=== PATIENT | female | born 1955 | race Caucasian/White ===

== ENCOUNTER 2019-12-27 14:06 | Emergency (ER) | payer OTHER, SELFPAY ==
[2019-12-27 14:06] VITALS: BP 176/93; PULSE 106; RESP 16; TEMP 35.5; O2SAT 95; BMI 37.5
--- NOTE | 2019-12-27 14:17 | ED.VIS.LOWEX ---
History of Present Illness Chief Complaint: Lower Extremity Injury Informant: Patient Occurred: Today Mechanism/Context: Injury Onset: Today Context: Sudden Onset Timing: Continuous Quality of Pain: Sharp, Throbbing Location: left foot Current Severity: Moderate Maximum Severity: Severe Worsened by: movement, palpation Relieved by: rest Associated Symptoms: Negative for: Parasthesia, Weakness, Loss of Funtion Narrative: 64-year-old female presents to the emergency department with a left foot injury. Patient was at home and accidentally dropped a wooden pallet on her foot. She was wearing a shoe. She is having pain swelling and bruising over her foot. She is able to ambulate but it is painful. She does have some degree of neuropathy but no worsening symptoms of this. No lacerations or abrasions. She is not on anticoagulation. Tetanus Immunization: Unknown Prior similar symptoms: No Recent Illness/Hospitalization: No Past Medical History - Allergies and Home Meds Allergies/Adverse Reactions: Allergies prednisone Adverse Reaction (Verified 12/27/19 14:06) Other Primary Care Physician: Junie Miranda DO [Primary Care Provider] - Prior records reviewed: Yes Past Medical History: - - HTN, HPL, DM2 Surgical History: no surgical history Lives: With Family Smoking Status: Never smoker Alcohol: None Drugs: None Review of Systems All systems negative except as indicated General: Denies: Chills, Fever, Sweats Eyes: Denies: Visual changes - bilaterally, Diplopia ENT: Denies: Rhinorrhea, Sore throat Cardiovascular: Denies: Chest pain, Palpitations Respiratory: Denies: Dyspnea, Cough, Dyspnea on exertion Gastrointestinal: Denies: Abdominal pain, Nausea, Vomiting, Diarrhea, Melena, Hematochezia Genitourinary: Denies: Dysuria, Hematuria, Frequency Musculoskeletal: Reports: Swelling, Extremity Pain. Denies: Back pain Skin: Denies: Rash, Abscess, Abrasions, Wounds Neurological: Denies: Headache, Weakness, Numbness Physical Exam Vital Signs/Narrative: Vital Signs Temp Pulse Resp BP Pulse Ox 12/27/19 14:06 96 F L 106 H 16 176/93 H 95 Inital Vital Signs reviewed: Yes - Extremity Exam Left Foot: - - Swelling bruising over the dorsum of the left foot mostly at the base of the first toe. The skin is intact. She has diffuse bony tenderness in this area. Cap refill sensation are both normal. Nail intact. There is no other bony tenderness of the foot or ankle. DP and PT pulses normal. No ankle tenderness. Normal active range of motion all 5 toes and she is able to actively plantarflex and dorsiflex General: Well nourished, Well developed Head: Normocephalic, Atraumatic Eyes: Perrl, EOMI ENT: No Trauma, Moist Mucous Membranes Neck: Nontender, Full ROM Cardiovascular: Regular rate, Regular rhythm, No murmurs Respiratory: No distress, CTA bilaterally, Chest nontender Abdomen: Soft, Nontender, Nondistended, Normal bowel sounds Back: Nontender Skin: Normal color, No rash Neurological: Alert, Oriented x3, Cranial nerves II-XII grossly intact, Normal Strength, Normal Sensation Psychological: Normal affect Diagnostic/Tx/Re-eval - Medical Decision Making X-ray of the foot shows no acute fractures or other acute abnormalities as independently interpreted by the emergency physician. Patient declines crutches was given an Niall wrap. Advised to rest ice elevate and use anti-inflammatories and follow-up with her doctor ED Disposition - Plan for ED Patient: Disposition: Home or Assisted Living Diagnosis: Contusion, foot Instructions: ED FOOT CONTUSION Referrals: Junie Miranda DO [Primary Care Provider] -
--- NOTE | 2019-12-27 14:27 | RAD_ITS ---
STUDY: X-RAY - LEFT FOOT CLINICAL: Female, 64 years old. Trauma, pain and swelling. TECHNIQUE: 3 view(s) of the foot. COMPARISON: None. FINDINGS: Moderate plantar spur. Prominent calcific enthesopathy at the insertion of the Achilles tendon. Normal visualized subtalar, talonavicular, calcaneocuboid, tarsal and tarsometatarsal articulations. Normal metatarsi. Normal metatarsophalangeal joint of the great toe. Normal tibial and fibular sesamoid bones. Normal interphalangeal joint of the great toe. Normal phalanges of the great toe. Normal second through fifth metatarsophalangeal joints. Normal interphalangeal joints and phalanges of the lesser toes. Mild to moderate dorsal soft tissue swelling. There is no demonstrated fracture. RAD/Foot min 3 Views IMPRESSION: No acute fracture or dislocation. Electronically Signed: Israel Frye MD at 15:00 EDT , Service support ,
--- NOTE | 2019-12-27 14:32 | ED.DCSUM_ITS ---
- ER Visit Summary Date of Service: 12/27/19 Chief Complaint: [Injury to left foot] History of Present Illness: The patient is a 64 F [presents to the emergency department after dropping a palate on her left foot. Patient was wearing shoes. Patient complains of bruising to the foot now and painful to ambulate. Patient is a diabetic.] Patient seen in conjunction with physician executive administrative assistant Ritchie Morales. Physical Examination: [HEENT-PERRLA, EOMI. Cranial nerves II through XII baldev ssly intact. TMs clear. Mucous membranes moist. No adenopathy. Cardiovascular-regular rate and rhythm without murmur or ectopy Lungs-clear to auscultation, chest wall stable without crepitus or subcu emphysema Abdomen-normoactive bowel sounds, soft, nontender, no rebound or rigidity, no peritoneal signs. Extremities-intact ?4, normal range of motion, normal pulses. Left foot-patient has ecchymosis and bruising noted over the dorsum of the first MTP joint with tenderness palpation. No obvious deformity. Neurovascular intact distally.] Test Results: [X-rays of the left foot obtained read by myself as no acute fractures. Patient has some calcific tendinitis at the insertion of the Achilles tendon and a heel spur noted.] Emergency Department Course and Treatment: [Patient will be offered an Niall wrap and crutches for comfort.] Treatment Plan: [She advised to follow-up with primary care physician in 5 to 7 days. Patient advised to ice and elevate the extremity. Patient advised to use ibuprofen or Tylenol for discomfort.] Disposition: [Discharged home in stable condition] Impression: [Contusion left foot] This note was generated with [employer] dictation software. It may contain incorrect words, spelling, and punctuation that were not noted in review of the chart prior to signing ED Disposition - Plan for ED Patient: Referrals: Junie Miranda DO [Primary Care Provider] -
[2019-12-27 14:46] VITALS: BP 133/59; PULSE 86; RESP 17; O2SAT 97
== END 2019-12-27 14:55 | disposition home or self-care (01) ==
LOC: ED 14:52
PROVIDERS: Emergency Provider Physician Assistant Medical; PCP Internal Medicine
DX: S90.32XA Contusion of left foot, initial encounter (principal); M65.272 Calcific tendinitis, left ankle and foot; W22.8XXA Striking against or struck by other objects, initial encounter; Y93.9 Activity, unspecified; Y92.9 Unspecified place or not applicable; I10 Essential (primary) hypertension; E11.9 Type 2 diabetes mellitus without complications; E78.5 Hyperlipidemia, unspecified; Z79.4 Long term (current) use of insulin; Z79.84 Long term (current) use of oral hypoglycemic drugs; Z79.899 Other long term (current) drug therapy
CPT/HCPCS: 73630; 99282

== ENCOUNTER 2020-09-04 11:57 | Emergency (ER) | payer OTHER, SELFPAY ==
[2020-09-04 11:58] VITALS: BP 135/70; PULSE 68; RESP 18; TEMP 36.2; O2SAT 96; BMI 36.1
--- NOTE | 2020-09-04 12:08 | RAD_ITS ---
STUDY: X-RAY - LEFT RADIUS AND ULNA REASON FOR EXAM: Female, 64 years old. PAIN W/ LTD ROM FROM ELBOW TO WRIST. HX FALL TECHNIQUE: 2 view(s) of the forearm. COMPARISON: None. FINDINGS: There is no demonstrated soft tissue swelling. Normal visualized radius. Normal visualized ulna. RAD/Forearm 2 Views IMPRESSION: Normal x-ray examination of the radius and ulna. Electronically Signed: Raoul Nieves MD at 12:43 EST Tel , Service support ,
--- NOTE | 2020-09-04 13:01 | ED.VISSUMM ---
- ER Visit Summary Date of Service: 09/04/20 Chief Complaint: Fall and left arm pain History of Present Illness: The patient is a [address] Nazario. She reports that yesterday she slipped on a rug in her breezeway and landed on her left elbow. She has pain to her left forearm that is 8 of 10 severity. The sharp pain is increased with movement. She denies any blow to the head or loss of consciousness. No neck, back, shoulder, or hip pain. She is right-hand dominant. Physical Examination: Vitals: Stable. Afebrile. Neck: No vertebral tenderness. Full ROM without difficulty. Cleared by NEXUS criteria. Back: No vertebral tenderness. General: A&O x 3. NAD. Cardiovascular exam: Regular rate and rhythm, no murmur, rub or gallop. Respiratory exam: Chest nontender. No crepitus. Clear to auscultation bilaterally. No wheezes or stridor. Abdominal exam: Soft, nontender, nondistended, normal bowel sounds. No pain in RUQ or LUQ specifically. No peritoneal signs. Extremity: Mild diffuse tenderness palpation over her left forearm. Moderate translocation over the radial head. She is neuro vas intact distal to this. Test Results: X-ray shows an anterior sail sign with no obvious fracture. Emergency Department Course and Treatment: Patient refused pain medications. Clinically she has a radial head fracture that is not apparent on the x-ray. She was placed in a sling. She does not want a splint. Treatment Plan: Patient be discharged instructions to follow-up with Dr. Alvarado in 1 week for another exam. Ice the area. Use Tylenol and/or ibuprofen as needed for pain. Return to the emergency department for any worsening symptoms. Disposition: To home in improved and stable condition. Impression: 1. Fall. 2. Occult radial head fracture on the left. This note was generated with [employer] dictation software. It may contain incorrect words, spelling, and punctuation that were not noted in review of the chart prior to signing ED Disposition - Plan for ED Patient: Instructions: ED Radial Head Fracture Referrals: Akshat Alvarado DO [STAFF PHYSICIAN] - 1 Week
[2020-09-04 13:11] VITALS: BP 128/62; PULSE 70; RESP 16
== END 2020-09-04 13:24 | disposition home or self-care (01) ==
LOC: ED 13:01
PROVIDERS: Emergency Provider Emergency Medicine; PCP Family Medicine
DX: S52.122A Displaced fracture of head of left radius, initial encounter for closed fracture (principal); W01.10XA Fall on same level from slipping, tripping and stumbling with subsequent striking against unspecified object, initial encounter; Y93.9 Activity, unspecified; Y92.009 Unspecified place in unspecified non-institutional (private) residence as the place of occurrence of the external cause; Y99.9 Unspecified external cause status; E11.9 Type 2 diabetes mellitus without complications; I10 Essential (primary) hypertension; J45.909 Unspecified asthma, uncomplicated; Z79.4 Long term (current) use of insulin; Z79.899 Other long term (current) drug therapy
CPT/HCPCS: 73090; 99283

== ENCOUNTER → 2020-10-24 10:01 | Outpatient (CLI) | payer OTHER, SELFPAY ==
[2020-10-24 10:41] LABS: Absolute Lymphocyte Count 2.43 X10^3/uL (0.83-4.51); Absolute Neutrophil Count 4.1 X10^3/uL (2.0-7.7); Basophil# 0.05 X10^3/uL; Basophil% 0.7 % (0-1); Eosinophils% 2.7 % (0-5); Hematocrit 39.5 % (37-47); Hemoglobin 12.9 g/dL (12.0-15.0); Lymphocyte # 2.43 X10^3/ul (4.0); Lymphocyte % 32.5 % (19-41); Mean Corp Hgb Conc 32.7 g/dL (32-36); Mean Corpuscular Hgb 28.3 pg (27.0-32.0); Mean Corpuscular Volume 86.6 fL (81-99); Mean Platelet Vol. 10.4 fl (6.2-12.0); Monocyte# 0.66 X10^3/uL; Monocyte% 8.8 % (0-10); NRBC Flagged by Analyzer 0 % (0-5); Neutrophil # 4.09 X10^3/uL (2.7-7.7); Neutrophil % 54.6 % (47-70); Platelet Count 336 K/mm3 (150-450); RBC Distribution Width CV 12.5 % (11.6-14.6); RBC Distribution Width SD 39.4 fl (35.1-43.9); Red Blood Count 4.56 M/mm3 (4.2-5.4); White Blood Count 7.5 K/mm3 (4.4-11.0)
[2020-10-24 11:16] LABS: ALB/GLOB Ratio 0.9 RATIO (0.9-2.4); AST(SGOT) 20 U/L (15-37); Alanine Aminotransfer ALT/SGPT 27 U/L (13-56); Albumin, Serum 3.6 g/dL (3.2-5.0); Alkaline Phosphatase 104 U/L (45-117); Anion Gap 9 (5-15); BUN 8 mg/dL (7-18); BUN/Creat Ratio 9.7 RATIO (10-20); Calcium,Total 9.3 mg/dL (8.5-10.1); Chloride 101 mmol/L (98-107); Cholesterol 290 mg/dL (200); Creatinine, Serum 0.82 mg/dL (0.55-1.02); EST Glomerular Filtration Rate 74 mL/min (>60); Est Glom Filt Rate - Afr Amer 90 mL/min (>60); Globulin 4.1 g/dL (2.2-4.2); Glucose 294 mg/dL (74-106); High Density Lipoprotein 41 mg/dL; Protein, Total 7.7 g/dL (6.4-8.2); Sodium Level 135 mmol/L (136-145); Triglycerides 262 mg/dL; Very Low Density Lipoprotein 52 mg/dL (5-40)
== END ==
PROVIDERS: PCP Family Medicine; Referring Provider Family Medicine; Visit Provider Family Medicine
DX: E11.65 Type 2 diabetes mellitus with hyperglycemia (principal); I10 Essential (primary) hypertension; E78.5 Hyperlipidemia, unspecified; K21.9 Gastro-esophageal reflux disease without esophagitis
CPT/HCPCS: 36415; 80053; 80061; 85025

== ENCOUNTER 2020-11-21 09:30 | Outpatient (RCR) | payer OTHER, SELFPAY ==
--- NOTE | 2020-10-19 08:13 | HP.OTEVAL ---
Patient's Visit Information VEE HUDSON is a 64 year old F, referred to Occupational Therapy by JOSE JOHNS, with a diagnosis of left radial head fx. Date of Evaluation: 10/18/20 Occupational Therapist: Syeda Khan, JOANR/Erik, CHT - Subjective This 64 year old female was seen for OT eval with dx of left radial head fx. pt states she had a fall 3 weeks prio to getting in at [facility]. Pt sates she had a fall due due to a rug that slipped under her feet. pt states her elbow gets a little achy- pt states she hasn't lifted anything. pt states sx was on 09/26/20 pt is 3 weeks 1 day s/p from left radial head arthroplasty. - Pain left elbow 4 Pain Intensity Range: 1, 6 - ROM Elbow: right 0/145 left -35/105 Forearm: right 60 left 45 Wrist: right 55/60 left 40/30 ROM Comments: pt demo with limited left elbow ROM - Strength Architectural Representative: right 50# left 7# Lateral Pinch: right 10# left 8# Tripod Pinch: right 8# left 5# - Sensation Thumb: right/left 2.83 Index: right/left 2.83 Middle: right/left 2.83 Ring: right/left 2.83 Little: right/left 2.83 Sensation Comments: pt states she feels like her LF is numb since cast was placed - Quick DASH-Disab of Arm,Shoulder& Hand Quick DASH Score: 65.0000 - Goals Goal:100% adherence to protocol: Yes Comment: radial head arthroplasty Goal:Daily scar massage when approriate: Yes Goal:ROM equal to unaffected hand: Yes Goal:Architectural Representative/Pinch strength at least 75% of unaffected hand: Yes Goal:No pain with affected hand use: Yes Goal:Full use of affected hand in daily activities including: Yes - Rehabilitation General Assessment: pt s/p 3 weeks and 1 day left radial head arthroplasty. pt limited with left elbow, forearm and wrist ROM, pain and weakness limit her with ADls and IADls. pt would benefit from skilled OT services 1-2x week for 6 weeks to return pt to PLOF. Today thearpy reviewed with pt AROM of elbow flex/ext, forearm sup/pron and wrist flex/ext. therapist instructed pt to hold her active end rage for 10 sec and work up to increase time. once pt has gained full ROM will transition pt to PRE as regina. pt demo understanding and agree to POC. Rehabilitation Potential: Good - Anticipated Interventions A/AAROM/PROM, Strengthening, Scar Care, Triggerpoint Release, Modalities, Orthoses, Joint Protection/Energy Conservation, Ergonomic Education - Visit Plan Frequency: 2x /Week Duration: 6 Weeks TEXT: Thank you for the opportunity to evaluate your patient. For Medicare and Medicare HMO plans, please review the plan of care and approve it. It will need to be FAXED BACK to us at [phone] for Medicare purposes. Please let me know if there are questions or concerns regarding this plan of care. Physician Signature: Date:
--- NOTE | 2020-11-21 10:01 | HP.OTDCSUM_ITS ---
It has been my pleasure to treat VEE HUDSON under orders from JOSE JOHNS, for the diagnosis of left radial head fx for a total of 8 visit(s). Please see the following information for a summary of their discharge status. % Improvement: 85 Objective/Function: left elbow ROM -30/ 130 (pt has been at -15 on October 31). pt made some gains with her elbow ROM but noticed with return to work a decrease in ROM- this could be as pt is only able to stretch 3-4 x a day. 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 pt reports she will cont with her HEP to cont to make gains in her ROM and strength. Patient Goals: Regain Strength, Use Hand/Wrist/Arm Normally Again, Be More Independent in ADLS Goal:100% adherence to protocol: Yes Goal:Daily scar massage when approriate: Yes Goal:ROM equal to unaffected hand: Yes Goal:Second Operator/Pinch strength at least 75% of unaffected hand: Yes Goal:No pain with affected hand use: Yes Goal:Full use of affected hand in daily activities including: Yes Plan: D/C with HEP Discharge Comments: pt was seen for 8 OT visits following radial head fx with surgical repair. pt made some gains with her ROM but continues to demo limited flex/ext- BUT this does not limit pts ind. with her ADLS and IADLs. pt is continuing with a HEP that includes end range stretching and t-band for PRE. Th eracoyst did discuss a static progressive brace but pt in not receptive and reports she would not have time to use one. pt will cont with her HEP at this time. If there are questions or concerns regarding this patient's occupational therapy, please fell free to call me at [phone]. Thank you for the referral of this patient. Sincerely, Syeda Khan, OTR/L, CHT
== END 2020-11-21 19:00 | disposition home or self-care (01) ==
LOC: OT 09:30
PROVIDERS: PCP Family Medicine
DX: S52.122D Displaced fracture of head of left radius, subsequent encounter for closed fracture with routine healing (principal)
CPT/HCPCS: 97035; 97110; 97140; 97166; 97530

== ENCOUNTER → 2022-02-05 | Outpatient (CLI) | payer MEDICARE, SELFPAY ==
[2022-02-05 10:49] LABS: Absolute Lymphocyte Count 2.31 X10^3/uL (0.83-4.51); Absolute Neutrophil Count 5.4 X10^3/uL (2.0-7.7); Basophil# 0.06 X10^3/uL; Basophil% 0.7 % (0-1); Eosinophil# 0.15 X10^3/uL; Eosinophils% 1.7 % (0-5); Hematocrit 39.9 % (37-47); Hemoglobin 12.9 g/dL (12.0-15.0); Lymphocyte # 2.31 X10^3/ul (0.83-4.51); Lymphocyte % 26.3 % (19-41); Mean Corp Hgb Conc 32.3 g/dL (32-36); Mean Corpuscular Hgb 27.3 pg (27.0-32.0); Mean Corpuscular Volume 84.4 fL (81-99); Mean Platelet Vol. 11.2 fl (6.2-12.0); Monocyte# 0.77 X10^3/uL; Monocyte% 8.8 % (0-10); NRBC Flagged by Analyzer 0 % (0-5); Neutrophil % 61.6 % (47-70); Platelet Count 304 K/mm3 (150-450); RBC Distribution Width CV 12.7 % (11.6-14.6); RBC Distribution Width SD 38.8 fl (35.1-43.9); Red Blood Count 4.73 M/mm3 (4.2-5.4); White Blood Count 8.8 K/mm3 (4.4-11.0)
[2022-02-05 11:10] LABS: ALB/GLOB Ratio 0.9 RATIO (0.9-2.4); AST(SGOT) 24 U/L (15-37); Alanine Aminotransfer ALT/SGPT 22 U/L (13-56); Albumin, Serum 3.5 g/dL (3.2-5.0); Alkaline Phosphatase 92 U/L (45-117); Anion Gap 8 (5-15); BUN 8 mg/dL (7-18); BUN/Creat Ratio 10.1 RATIO (10-20); Chloride 101 mmol/L (98-107); Cholesterol 134 mg/dL (200); Creatinine, Serum 0.79 mg/dL (0.55-1.02); EST Glomerular Filtration Rate 77 mL/min (>60); Est Glom Filt Rate - Afr Amer 94 mL/min (>60); Globulin 4.1 g/dL (2.2-4.2); Glucose 310 mg/dL (74-106); High Density Lipoprotein 36 mg/dL; Potassium 3.9 mmol/L (3.5-5.1); Protein, Total 7.6 g/dL (6.4-8.2); Sodium Level 137 mmol/L (136-145); Triglycerides 205 mg/dL; Very Low Density Lipoprotein 41 mg/dL (5-40)
[2022-02-05 11:11] LABS: Microalbumin,Random Urine 67.8 mg/L (NO RANGE EST.); Microalbumin:Creatinine Ratio 27.1 mg/g CRE (<30 mg/g CRE)
[2022-02-05 11:20] LABS: Hemoglobin A1c 12.1 % (3.8-5.6)
== END | disposition home or self-care (01) ==
LOC: LAB 09:44
PROVIDERS: PCP Family Medicine; Referring Provider Family Medicine; Visit Provider Family Medicine
DX: E11.65 Type 2 diabetes mellitus with hyperglycemia (principal); E78.5 Hyperlipidemia, unspecified; I10 Essential (primary) hypertension; K21.9 Gastro-esophageal reflux disease without esophagitis
CPT/HCPCS: 36415; 80053; 80061; 82043; 82570; 83036; 85025

== ENCOUNTER → 2022-12-21 | Outpatient (CLI) | payer MEDICARE, SELFPAY ==
[2022-12-21 15:21] LABS: Absolute Lymphocyte Count 3.01 X10^3/uL (0.83-4.51); Basophil# 0.07 X10^3/uL; Basophil% 0.7 % (0-1); Eosinophil# 0.15 X10^3/uL; Eosinophils% 1.5 % (0-5); Hematocrit 39.4 % (37-47); Hemoglobin 12.4 g/dL (12.0-15.0); Lymphocyte # 3.01 X10^3/ul (0.83-4.51); Lymphocyte % 29.7 % (19-41); Mean Corp Hgb Conc 31.5 g/dL (32-36); Mean Corpuscular Hgb 27.4 pg (27.0-32.0); Mean Platelet Vol. 11.1 fl (6.2-12.0); Monocyte# 0.86 X10^3/uL; Monocyte% 8.5 % (0-10); NRBC Flagged by Analyzer 0 % (0-5); Neutrophil # 5.99 X10^3/uL (2.7-7.7); Platelet Count 298 K/mm3 (150-450); RBC Distribution Width CV 12.9 % (11.6-14.6); RBC Distribution Width SD 40.8 fl (35.1-43.9); Red Blood Count 4.53 M/mm3 (4.2-5.4); White Blood Count 10.1 K/mm3 (4.4-11.0)
[2022-12-21 16:07] LABS: ALB/GLOB Ratio 0.8 RATIO (0.9-2.4); AST(SGOT) 46 U/L (15-37); Alanine Aminotransfer ALT/SGPT 29 U/L (13-56); Albumin, Serum 3.5 g/dL (3.2-5.0); Alkaline Phosphatase 77 U/L (45-117); Anion Gap 7 (5-15); BUN 8 mg/dL (7-18); BUN/Creat Ratio 11.1 RATIO (10-20); Chloride 105 mmol/L (98-107); Cholesterol 127 mg/dL (200); Creatinine, Serum 0.72 mg/dL (0.55-1.02); EST Glomerular Filtration Rate 86 mL/min (>60); Est Glom Filt Rate - Afr Amer 104 mL/min (>60); Globulin 4.5 g/dL (2.2-4.2); Glucose 130 mg/dL (74-106); High Density Lipoprotein 41 mg/dL; Potassium 4.3 mmol/L (3.5-5.1); Sodium Level 139 mmol/L (136-145); Triglycerides 174 mg/dL; Very Low Density Lipoprotein 35 mg/dL (5-40)
[2022-12-21 16:12] LABS: Microalbumin,Random Urine < 5.0 mg/L (NO RANGE EST.)
== END | disposition home or self-care (01) ==
LOC: BFHLAB 11:33
PROVIDERS: PCP Family Medicine; Referring Provider Family Medicine; Visit Provider Family Medicine
DX: I10 Essential (primary) hypertension (principal); E11.65 Type 2 diabetes mellitus with hyperglycemia; E78.5 Hyperlipidemia, unspecified; K21.9 Gastro-esophageal reflux disease without esophagitis
CPT/HCPCS: 36415; 80053; 80061; 82043; 82570; 85025

== ENCOUNTER → 2023-06-28 | Outpatient (CLI) | payer MEDICARE, OTHER, SELFPAY ==
--- NOTE | 2023-06-28 09:21 | RAD_ITS ---
STUDY: X-RAY - RIGHT KNEE REASON FOR EXAM: Female, 67 years old. Right lateral knee pain. TECHNIQUE: 4 view(s) of the knee. COMPARISON: None. FINDINGS: Osteopenia. Inferior patellar spur. Moderate medial compartmental arthrosis. Mild lateral compartmental arthrosis. Lateral tilt and subluxation of the patella with mild arthrosis of the lateral patellofemoral compartment. Small suprapatellar joint effusion. Normal soft tissues. RAD/Knee 4 or More Views IMPRESSION: Osteopenia with inferior patellar spur, tricompartmental arthrosis and small joint effusion. Electronically Signed: Bandar Alexander MD at 11:00 EST ,
== END | disposition home or self-care (01) ==
LOC: MTRAD 09:19
PROVIDERS: PCP Family Medicine; Referring Provider Family Medicine; Visit Provider Family Medicine
DX: M25.561 Pain in right knee (principal)
CPT/HCPCS: 73564

== ENCOUNTER 2023-07-04 09:01 | Outpatient (RCR) | payer MEDICARE, OTHER, SELFPAY ==
--- NOTE | 2023-07-04 09:47 | HP.PTEVAL ---
Patient's Visit Information Visit Information Visit Information: VEE HUDSON is a 67 year old F referred to Physical Therapy by Dr. Rizwana Nazario MD with a diagnosis of R knee pain. Date of Evaluation: 07/04/23 Physical Therapist: Erik Wing, CATHLEENT, OCS, CSCS Visit Plan Frequency: 1x/Week Duration: 4-6 Weeks Plan: Monitor meloxicam weeans effect on pain and function weekly x 3-4:next session NWB strength then WB strength if pain stays good patient did not wish more frequent visits and full gym program Subjective Subjective: R knee had been hurting for 6-8 weeks insidiously. took ibuprofen but still became hard to walk and was limping. At doctor's appointment mentioned to doctor and had x rays. Then PT. Pain is posteriorly described as tightness and sometimes anteriorly. Intermittent, comfortable at rest. Worse with walking further. On meds for this antiinflammtory which has helped. It helped 95%. sleep is not a problem but was prior to meds. Retired. Spends day cleaning house and straightening up, reads, plays puzzles. No regular exercises. Pain R knee: Pain Intensity (Out of 10): 0 Pain Intensity Range: 0 and 2 Objective Objective: Walks without antalgia i today, steps reciprocally with one rail, bed and chair transfers I without pain, meloxicam has really helped and she wonders why she is here. AROM R knee 0 with pain to 122 limited by pain, L knee 0-130 hip and ankle AROM WFL, tightness evident in HS at -30 90/90 test adn quad B. strength is 3+ R knee ext adn flexion with pain, L is 4/5, hips are 3+ abd and rotations and ext B and 4- flexion. ankles 4+/5 + bounce home, - ant drawer, - knee scour, - post sag, - pivot shift. Balance/Special Test Scores Lower Extremity Functional Score: 52 Goals Goal 1:: Full aROM R knee without pain Goal Time Frame: 4-6 Weeks Goal 2:: Pt feel 100% better Goal Time Frame: 4-6 Weeks Goal 3:: I approp HEp to minimize chance of returning. Goal Time Frame: 4-6 Weeks Rehabilitation Potential Physical Therapy Diagnosis: R knee pain limiting function until meds, meniscal vs OA Rehabilitation Potential: Good Anticipated Interventions Patient/Client Instruction: Educate patient on: Condition For the Purpose of:: To decrease pain, To increase ROM, To improve nutrient delivery to tissue, To improve muscle performance and motor function and To increase tolerance to activity/condition/position Therapeutic Exercise to Include: Strength training, Flexibilty training, Passive ROM and Active ROM For the Purpose of:: To decrease pain, To decrease swelling/inflammation, To increase ROM, To improve nutrient delivery to tissue, To increase tolerance to activity/condition/position and To improve ability of physical actions for home/community/work/leisure Text: Thank you for the opportunity to evaluate your patient. For Medicare and Medicare HMO plans, please review the plan of care and approve it. It will need to be FAXED BACK to us at [phone] for Medicare purposes. For Medicare only, by signing this I certify the plan of care. Please let me know if there are questions or concerns regarding this plan of care. Physician Signature: Date:
--- NOTE | 2023-08-30 14:28 | HP.PT.NRP ---
Patient Information Patient Information: VEE HUDSON was seen in my office for initial evaluation on 07/04/23. The following Plan of Care was established for this patient: POC Established Initial Frequency: 1x/Week Initial Duration: 4-6 Weeks Anticipated Interventions Patient/Client Instruction: Educate patient on: Condition For the Purpose of:: To decrease pain, To increase ROM, To improve nutrient delivery to tissue, To improve muscle performance and motor function and To increase tolerance to activity/condition/position Therapeutic Exercise to Include: Strength training, Flexibilty training, Passive ROM and Active ROM For the Purpose of:: To decrease pain, To decrease swelling/inflammation, To increase ROM, To improve nutrient delivery to tissue, To increase tolerance to activity/condition/position and To improve ability of physical actions for home/community/work/leisure Last Seen Last Seen: This patient was last seen in our office 07/04/23. Pertinent comments regarding their Physical therapy will appear below: Pt seen for initial evaluation and POC established. PT did not return for any further visits. At this point, it has been over 6 weeks and i will discontinue due to nonattendance. At this point I will be discontinuing this patient from physical therapy. I would be happy to see this patient again in the future if found appropriate by the physician. Thank you! Erik Wing, DPT, OCS, CSCS Balance/Gait/Functional tests Balance/Special Test Scores Lower Extremity Functional Score: 52
== END 2023-07-04 19:00 | disposition home or self-care (01) ==
LOC: PT 09:01
PROVIDERS: PCP Family Medicine; Visit Provider Family Medicine
DX: M25.561 Pain in right knee (principal)
CPT/HCPCS: 97110; 97161

== ENCOUNTER → 2023-12-12 | Outpatient (CLI) | payer MEDICARE, OTHER, SELFPAY ==
[2023-12-12 12:12] LABS: Absolute Lymphocyte Count 2.42 X10^3/uL (0.83-4.51); Basophil# 0.06 X10^3/uL; Basophil% 0.7 % (0-1); Eosinophils% 2.4 % (0-5); Hematocrit 36.8 % (37-47); Hemoglobin 11.5 g/dL (12.0-15.0); Lymphocyte # 2.42 X10^3/ul (0.83-4.51); Lymphocyte % 28.6 % (19-41); Mean Corp Hgb Conc 31.3 g/dL (32-36); Mean Corpuscular Hgb 26.8 pg (27.0-32.0); Mean Corpuscular Volume 85.8 fL (81-99); Monocyte# 0.77 X10^3/uL; Monocyte% 9.1 % (0-10); NRBC Flagged by Analyzer 0 % (0-5); Neutrophil # 4.97 X10^3/uL (2.7-7.7); Neutrophil % 58.8 % (47-70); Platelet Count 286 K/mm3 (150-450); RBC Distribution Width CV 13.5 % (11.6-14.6); RBC Distribution Width SD 41.9 fl (35.1-43.9); Red Blood Count 4.29 M/mm3 (4.2-5.4); White Blood Count 8.5 K/mm3 (4.4-11.0)
[2023-12-12 12:39] LABS: Vitamin B12 196 pg/mL (211-911)
[2023-12-12 12:42] LABS: ALB/GLOB Ratio 0.8 RATIO (0.9-2.4); AST(SGOT) 24 U/L (15-37); Alanine Aminotransfer ALT/SGPT 18 U/L (13-56); Albumin, Serum 3.2 g/dL (3.2-5.0); Alkaline Phosphatase 67 U/L (45-117); Anion Gap 7 (5-15); BUN 13 mg/dL (7-18); BUN/Creat Ratio 18.5 RATIO (10-20); Calcium,Total 8.9 mg/dL (8.5-10.1); Chloride 110 mmol/L (98-107); Cholesterol 108 mg/dL (200); EST Glomerular Filtration Rate 88 mL/min (>60); Est Glom Filt Rate - Afr Amer 107 mL/min (>60); Globulin 3.9 g/dL (2.2-4.2); Glucose 75 mg/dL (74-106); High Density Lipoprotein 42 mg/dL; Potassium 3.9 mmol/L (3.5-5.1); Protein, Total 7.1 g/dL (6.4-8.2); Sodium Level 141 mmol/L (136-145); Triglycerides 148 mg/dL; Very Low Density Lipoprotein 30 mg/dL (5-40)
== END | disposition home or self-care (01) ==
LOC: BFHLAB 10:13
PROVIDERS: PCP Family Medicine; Referring Provider Family Medicine; Visit Provider Family Medicine
DX: E11.65 Type 2 diabetes mellitus with hyperglycemia (principal); E78.5 Hyperlipidemia, unspecified; I10 Essential (primary) hypertension; K21.9 Gastro-esophageal reflux disease without esophagitis
CPT/HCPCS: 36415; 80053; 80061; 82043; 82570; 82607; 85025

== ENCOUNTER → 2023-12-24 | Outpatient (CLI) | payer MEDICARE, OTHER, SELFPAY ==
[2023-12-27 18:43] LABS: Microalbumin,Random Urine 7.9 mg/L (NO RANGE EST.); Microalbumin:Creatinine Ratio 9.4 mg/g CRE (<30 mg/g CRE)
== END | disposition home or self-care (01) ==
LOC: BFHLAB 13:11 → LABSPEC 13:13
PROVIDERS: PCP Family Medicine; Referring Provider Family Medicine; Visit Provider Family Medicine
DX: E11.65 Type 2 diabetes mellitus with hyperglycemia (principal); E78.5 Hyperlipidemia, unspecified; I10 Essential (primary) hypertension; K21.9 Gastro-esophageal reflux disease without esophagitis
CPT/HCPCS: 82043; 82570

== ENCOUNTER → 2024-03-26 | Outpatient (CLI) | payer MEDICARE, OTHER, SELFPAY ==
[2024-03-26 12:36] LABS: Vitamin B12 232 pg/mL (211-911)
== END | disposition home or self-care (01) ==
LOC: BFHLAB 09:31
PROVIDERS: PCP Family Medicine; Referring Provider Family Medicine; Visit Provider Family Medicine
DX: E53.8 Deficiency of other specified B group vitamins (principal)
CPT/HCPCS: 36415; 82607

== ENCOUNTER → 2025-01-07 | Outpatient (CLI) | payer MEDICARE, OTHER, SELFPAY ==
[2025-01-07 12:33] LABS: Absolute Lymphocyte Count 2.65 X10^3/uL (0.83-4.51); Basophil# 0.06 X10^3/uL; Basophil% 0.7 % (0-1); Eosinophil# 0.15 X10^3/uL; Eosinophils% 1.7 % (0-5); Hematocrit 39.6 % (37-47); Hemoglobin 12.8 g/dL (12.0-15.0); Lymphocyte # 2.65 X10^3/ul (0.83-4.51); Lymphocyte % 30.8 % (19-41); Mean Corp Hgb Conc 32.3 g/dL (32-36); Mean Corpuscular Hgb 27.7 pg (27.0-32.0); Mean Corpuscular Volume 85.7 fL (81-99); Mean Platelet Vol. 11.3 fl (6.2-12.0); Monocyte# 0.75 X10^3/uL; Monocyte% 8.7 % (0-10); NRBC Flagged by Analyzer 0 % (0-5); Neutrophil # 4.95 X10^3/uL (2.7-7.7); Neutrophil % 57.5 % (47-70); Platelet Count 349 K/mm3 (150-450); RBC Distribution Width CV 13.1 % (11.6-14.6); RBC Distribution Width SD 40.3 fl (35.1-43.9); Red Blood Count 4.62 M/mm3 (4.2-5.4); White Blood Count 8.6 K/mm3 (4.4-11.0)
[2025-01-07 13:09] LABS: Hemoglobin A1c 8.7 % (<=5.6)
[2025-01-07 13:10] LABS: Microalbumin,Random Urine 37.2 mg/L (NO RANGE EST.); Microalbumin:Creatinine Ratio 14.8 mg/g CRE
[2025-01-07 13:26] LABS: ALB/GLOB Ratio 1.2 RATIO (0.9-2.4); AST(SGOT) 25 U/L (<=31); Alanine Aminotransfer ALT/SGPT 16 U/L (<=34); Alkaline Phosphatase 74 U/L (35-104); Anion Gap 12 (5-15); BUN 11 mg/dL (4-19); BUN/Creat Ratio 15.5 RATIO (10-20); Calcium,Total 9.5 mg/dL (7.6-11.0); Carbon Dioxide 22.5 mmol/L (21.0-32.0); Chloride 104 mmol/L (98-108); Cholesterol 111 mg/dL (<=200); Creatinine, Serum 0.69 mg/dL (0.70-1.20); EST Glomerular Filtration Rate 94 (>60); Globulin 3.3 g/dL (2.2-4.2); Glucose 134 mg/dL (70-99); High Density Lipoprotein 41 mg/dL; Low Density Lipoprotein Calc. 42 mg/dL; Potassium 4.4 mmol/L (3.3-5.1); Protein, Total 7.2 g/dL (5.9-8.4); Sodium Level 139 mmol/L (133-145); Total Bilirubin 0.27 mg/dL (0.00-1.30); Triglycerides 143 mg/dL; Very Low Density Lipoprotein 29 mg/dL (5-40); Vitamin B12 362 pg/mL (180-914); cholesterol:hdl ratio screen 2.72
== END | disposition home or self-care (01) ==
PROVIDERS: PCP Family Medicine; Visit Provider Family Medicine
DX: E11.65 Type 2 diabetes mellitus with hyperglycemia (principal); I10 Essential (primary) hypertension; E78.5 Hyperlipidemia, unspecified; K21.9 Gastro-esophageal reflux disease without esophagitis; D51.9 Vitamin B12 deficiency anemia, unspecified
CPT/HCPCS: 36415; 80053; 80061; 82043; 82570; 82607; 83036; 85025